=== PATIENT | female | born 1985 | race African-American/Black ===

== ENCOUNTER 2016-06-06 18:18 | Emergency (ER) | payer MEDICAID ==
[2016-06-06 19:46] LABS: BASOPHILS 0.1 % (0-2); EOSINOPHILS 0.4 % (0-7); HEMATOCRIT 34.7 % (36.0-48.0); HEMOGLOBIN 12.3 g/dL (12-16); IMMATURE GRANULOCYTES 0.8 % (0-5); LYMPHOCYTES 30.8 % (15-50); MCH 35.9 pg (26.0-34.0); MCHC 35.4 g/dL (31.0-37.0); MCV 101.2 fL (80.0-100.0); MEAN PLATELET VOLUME 9.4 fL (7.4-10.4); NEUTROPHILS 58.9 % (40-80); PLATELET COUNT 202 10x3/uL (130-400); RBC 3.43 10x6/uL (4.00-5.40); RDW 12.9 % (11.5-14.5)
[2016-06-06 19:51] LABS: APPEARANCE CLEAR (CLEAR); BILIRUBIN NEGATIVE (NEGATIVE); COLOR YELLOW (YELLOW); GLUCOSE NEGATIVE (NEGATIVE); KETONE NEGATIVE (NEGATIVE); LEUKOCYTE ESTERASE NEGATIVE (NEGATIVE); NITRITE NEGATIVE (NEGATIVE); PROTEIN NEGATIVE (NEGATIVE); SPECIFIC GRAVITY 1.015 (1.005-1.020); UROBILINOGEN NORMAL (NORMAL)
[2016-06-06 20:13] LABS: ALBUMIN 3.1 g/dL (3.4-5.0); ALKALINE PHOSPHATASE 46 U/L (46-116); ALT (SGPT) 32 U/L (10-68); BILIRUBIN - TOTAL 0.27 mg/dL (0.2-1.3); CALC OSMOLALITY 276 mosm/kg (275-300); CALCIUM 8.6 mg/dL (8.5-10.1); CARBON DIOXIDE 28.2 mmol/L (21.0-32.0); CHLORIDE - SERUM 105 mmol/L (98-107); CREATININE - SERUM 0.6 mg/dL (0.6-1.3); GLUCOSE 89 mg/dL (74-106); POTASSIUM - SERUM 4.3 mmol/L (3.5-5.1); PROTEIN - SERUM 6.6 g/dL (6.4-8.2); SODIUM 140 mmol/L (136-145); UREA NITROGEN 11 mg/dL (7-18); eGFR NON AFRICAN AMERICAN > 90 mL/min (90-120)
== END 2016-06-06 23:00 | disposition home or self-care (01) ==
LOC: D.ER 18:18
PROVIDERS: Family Medicine
DX: O26.891 Other specified pregnancy related conditions, first trimester (principal); Z3A.12 12 weeks gestation of pregnancy; R10.9 Unspecified abdominal pain

== ENCOUNTER 2016-12-19 05:00 | Inpatient (IN) | payer MEDICAID ==
[2016-12-19] MEDS ORDERED: PREPLUS CA-FE1 EACH (05:47)
[2016-12-19 05:48] VITALS: BP 131/75
[2016-12-19 06:14] LABS: UDS - AMPHET NEGATIVE QUAL (NEGATIVE); UDS - BARB NEGATIVE QUAL (NEGATIVE); UDS - BENZO NEGATIVE QUAL (NEGATIVE); UDS - COCAINE NEGATIVE QUAL (NEGATIVE); UDS - OPIATE NEGATIVE QUAL (NEGATIVE); UDS - PCP NEGATIVE QUAL (NEGATIVE); UDS - THC NEGATIVE QUAL (NEGATIVE)
[2016-12-19 06:27] LABS: HEMATOCRIT 36.1 % (36.0-48.0); HEMOGLOBIN 12.8 g/dL (12-16); MCH 35.3 pg (26.0-34.0); MCHC 35.5 g/dL (31.0-37.0); MCV 99.4 fL (80.0-100.0); MEAN PLATELET VOLUME 10.3 fL (7.4-10.4); RBC 3.63 10x6/uL (4.00-5.40)
[2016-12-19 08:44] LABS: APPEARANCE SLT CLOUDY (CLEAR); BILIRUBIN NEGATIVE (NEGATIVE); COLOR YELLOW (YELLOW); GLUCOSE NEGATIVE (NEGATIVE); KETONE NEGATIVE (NEGATIVE); NITRITE NEGATIVE (NEGATIVE); PROTEIN NEGATIVE (NEGATIVE); UROBILINOGEN NORMAL (NORMAL)
[2016-12-19 08:47] LABS: BACTERIA MANY /hpf (NONE SEEN); MUCUS >1+ /lpf (NONE SEEN); RED CELLS - URINE 0-5 /hpf (0-5); WHITE CELLS - URINE 0-5 /hpf (0-5)
[2016-12-19 19:10] VITALS: BP 128/71
--- NOTE | 2016-12-19 19:10 | NUR ---
PT. AWAKE AND ORIENTED. SKIN WARM AND DRY. FUNDUS FIRM U/2 AND LOCHIA RUBRA MOD. ROM OF MOTION OF BOTH EXTREMITIES. SKIN WARM AND DRY. REPORTS ABD. CRAMPING THAT SHE RATES A 7 OF 10 ON PAIN SCALE. IV OF LR INFUSING AT 125CC/HR. IN LT. FOREARM. BREATH SOUNDS CLEAR AND BOWEL SOUNDS AUDIBLE. REPORTS THAT SHE IS HUNGRY. INFORMED OF NOURISHMENTS THAT ARE AVAILABLE ON UNIT. PT. MAKES REQUEST OF SAME. SANDWICH TRAY , PUDDING AND COLA DRINK SERVED TO PT.
--- NOTE | 2016-12-19 19:25 | NUR ---
PAIN MED. GIVEN ORDERED. PT. CHEERFUL AND TALKING ON PHONE.
--- NOTE | 2016-12-19 19:35 | NUR ---
IV CONVERTED TO SALINE LOCK. NO REDNESS NOR EDEMA AT IV SITE.
--- NOTE | 2016-12-19 20:02 | NUR ---
PT. SITTING UP IN BED FEEDING INFANT. TALKING AND LAUGHING WITH VISITORS AT BEDSIDE. STATES PAIN HAS IMPROVED SINCE PAIN MED AND RATES A 6 OF 10 ON PAIN SCALE. SIDE RAILS UP X 2.
--- NOTE | 2016-12-19 20:40 | NUR ---
EPIDURAL CATH. REMOVED WITH BLACK TIP NOTED. NBN STAFF IN ROOM BATHING INFANT. OLGA PADS AND PANTIES APPLIED AND PT. UP TO VIEW BATH. PT. DENIES ANY NUMBNESS AND HAS STEADY GAIT.
--- NOTE | 2016-12-19 20:50 | NUR ---
TRANSFERRED TO 1273 AMBULATORY. ORIENTED TO ROOM, CALL SYSTEM, AND BED CONTROLS. VOIDED WITHOUT DIFFICULTY. SELF OLGA CARE TAUGHT AND PT. STATES VERBAL UNDERSTANDING. SIDE RAILS UP X 2. FOB IN ROOM WITH PT. PT. DESIRES TO SHOWER. GAIT STEADY AND DENIES ANY DIZZINESS. ENCOURAGED TO TAKE TEPID SHOWER FOR THE FIRST TIME UP. STATES UNDERSTANDING. LINENS PROVIDED.
--- NOTE | 2016-12-19 21:07 | NUR ---
AMBULATORY INTO HALLWAY. GAIT STEADY.
--- NOTE | 2016-12-19 21:25 | NUR ---
BACK TO ROOM FOR WALKING. CHEERFUL.
--- NOTE | 2016-12-19 21:39 | NUR ---
WALKING ABOUT IN ROOM AND BRUSHING TEETH. STATES SHE IS "FEELING LIKE MYSELF AGAIN". RATES PAIN A 4 OF 10 AND STATES SHE "FEELS GOOD". FOB IN ROOM WITH PT. DENIES ANY FURTHER NEEDS.
--- NOTE | 2016-12-19 22:22 | NUR ---
COLA DRINK SERVED TO PT. RATES PAIN A 4 OF 10 ON PAIN SCALE. VITAL SIGNS OBTAINED.
[2016-12-19 22:29] VITALS: BP 128/60
--- NOTE | 2016-12-19 22:46 | NUR ---
PAIN MED GIVEN ORDERED. PT. ON PHONE AND FOB HOLDING INFANT. PT. CHEERFUL AND DENIES ANY FURTHER NEEDS.
--- NOTE | 2016-12-19 23:32 | NUR ---
PT. SITTING UP IN BED HOLDING INFANT AND ATTEMPTING TO FEED. STATES INFANT IS NOT WANTING TO EAT FOR HER. INFORMED WOULD LET NBN STAFF KNOW. SAME DONE. RELATES THAT PAIN IS A 3 OF 10 ON PAIN SCALE.
--- NOTE | 2016-12-20 00:09 | NUR ---
PT. UP TO BATHROOM TO VOID. FOB SITTING IN CHAIR FEEDING INFANT. C/O BACKPAIN AND ABD. CRAMPING THAT SHE RATES A 4 OF 10 ON PAIN SCALE.
--- NOTE | 2016-12-20 01:10 | NUR ---
LYING ON STOMACH WITH EYES CLOSED. RESPIRATIONS REGULAR.
--- NOTE | 2016-12-20 03:19 | NUR ---
LYING ON BACK WITH HOB AT 15 DEGREES. EYES CLOSED AND RESPIRATIONS REGULAR. SIDE RAILS UP X 2.
--- NOTE | 2016-12-20 05:59 | NUR ---
PT. UP TO BATHROOM TO VOID. REPORTS BACK PAIN AND ABD. CRAMPING. PAIN MED GIVEN ORDERED. COLA DRINK SERVED. PT. REQUESTING INFANT TO ROOM.
--- NOTE | 2016-12-20 06:07 | NUR ---
INFANT TO ROOM. ID BAND OF MOTHER AND MATCHED. PT. SITTING UP IN BED WITH HOB ELEVATED 45 DEGREES. CHEERFUL. FOB AWAKE AND ASSISTING MOTHER.
--- NOTE | 2016-12-20 06:10 | NUR ---
INFANT OUT TO MOM PER Silviano CHUA RN IN OPEN CRIB.
[2016-12-20 08:07] LABS: HEMATOCRIT 36.6 % (36.0-48.0); HEMOGLOBIN 12.8 g/dL (12-16); MCH 35.4 pg (26.0-34.0); MCV 101.1 fL (80.0-100.0); MEAN PLATELET VOLUME 9.9 fL (7.4-10.4); RBC 3.62 10x6/uL (4.00-5.40)
[2016-12-20 08:08] LABS: WBC 12.9 10x3/uL (4.8-10.8)
[2016-12-20 08:30] VITALS: BP 114/58
--- NOTE | 2016-12-20 08:30 | NUR ---
ASSESSMENT DONE- VERBAL RESPONSES APPRO TO QUESTIONS. WATKINS AT WILL. UP AND ABOUT IN ROOM. REG BREAKFAST SERVED. ABD SOFT. FUNDUS U1/FIRM. SCANT LOCHIA NOTED ON PAD.
--- NOTE | 2016-12-20 09:28 | NUR ---
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 NO REQUESTS AT THIS TIME.
--- NOTE | 2016-12-20 11:02 | NUR ---
AMBULATING IN HALLWAY. REQUESTING SODA AND PAIN PILL. STATES THAT HAS PAIN IN "MY STOMACH AND MY BACK" RATES PAIN AN 8 ON SCALE OF 0-10. STATES THAT SHE WOULD LIKE THE DEMEROL.
--- NOTE | 2016-12-20 12:28 | OP ---
PATIENT NAME: PAUL MONTERO MEDICAL RECORD: [id number] LOCATION:[id number] ADMISSION DATE:12/19/16 SURGEON: SHE BEEBE MD DATE OF OPERATION: 12/19/2016 DELIVERY NOTE Spontaneous vaginal delivery, a female weighing 6 pounds 6 ounces, 9 and 9 Apgars, no episiotomy, epidural anesthesia. No lacerations. Spontaneous delivery of intact-appearing placenta. Noted to have numerous calcifications. Cord blood drawn for pH. COMPLICATIONS OF DELIVERY: None. TRANSINT:[id number] Voice Confirmation ID: [id number] DOCUMENT ID: [id number] SHE BEEBE MD at 1228 CC: [id number] DICTATION DATE: 12/19/161807 COMMUNICATIONS SUPERVISOR: 12/19/[address] [facility] [address] [place] [address]
--- NOTE | 2016-12-20 12:30 | NUR ---
STATES THAT PAIN IS DOWN TO A 5 OR SO- FAMILY AT BEDSIDE. DENIES NEEDS. UP AND ABOUT IN ROOM AND HALLWAYS.
[2016-12-20 15:00] VITALS: BP 125/60
--- NOTE | 2016-12-20 15:00 | NUR ---
VS DONE. STATES THAT HAVING PAIN IN BACK AND ABD. RATES PAIN A 9-10. REQUESTING SODA. USING CELL PHONE. PT STATES THAT SHE "HAD TO HAVE 2 EPIDURALS YESTERDAY" DISCUSSED TRYING IBUPROFEN -PT AGREES.
--- NOTE | 2016-12-20 16:52 | NUR ---
shower done -linens changed. requesting demerol for pain- med given. pt ambulating about in room.
--- NOTE | 2016-12-20 18:50 | NUR ---
report to pm shift.
[2016-12-20 19:12] VITALS: BP 131/86
--- NOTE | 2016-12-20 19:12 | NUR ---
PT AMBULATING IN ROOM. 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 RESP EVEN AND UNLABORED. LUNGS CLEAR BILATERALLY. BOWEL SOUNDS PRESENT X4. FUNDUS FIRM U/1. LIGHT LOCHIA NOTED TO OLGA PAD. PT RATES PAIN 8/10, HAS ALREADY BEEN MEDICATED. NSY NURSE IN ROOM TO CARE FOR . COLA AND CUP OF ICE PROVIDED PER PT REQUEST. CALL LIGHT IN REACH. PT GOING TO WALK WITH S/O. SAJI MERRILL
--- NOTE | 2016-12-20 20:15 | NUR ---
PT RETURNED TO ROOM. SAJI MERRILL
--- NOTE | 2016-12-20 21:29 | NUR ---
THIS RN TO ROOM TO ADMINISTER PAIN MEDICATION, PT OUT OF ROOM. S/O PRESENT IN ROOM. INFANT RESTING IN CRIB. SAJI MERRILL
--- NOTE | 2016-12-20 21:39 | NUR ---
DEMEROL 100MG ADMINISTERED FOR C/O PAIN 10/26. MILK OF MAG ADMINISTERED ORDERED. PT DENIES NEEDS AT THIS TIME. VISITORS IN ROOM. SAJI MERRILL
--- NOTE | 2016-12-20 23:22 | NUR ---
ROOM CHECK, PT UP IN BATHROOM. DENIES NEEDS AT THIS TIME. SAJI MERRILL
--- NOTE | 2016-12-21 00:55 | NUR ---
PT REQUESTS PAIN MEDICATION. SEE E-MAR FOR MEDICATION ADMINISTRATION. SAJI MERRILL
--- NOTE | 2016-12-21 02:03 | NUR ---
PT AMBULATES OFF UNIT WITH SO. PT IN NO ACUTE DISTRESS. INFANT IN NURSERY FOR BOTTLEFEED.
--- NOTE | 2016-12-21 02:33 | NUR ---
PT CALLS, C/O PAIN, RATES 08/25, REQUESTS MEDICATION. DEMEROL 100MG PROVIDED PO AT THIS TIME. PT DENIES ANY FURTHER NEEDS. BED IN LOW POSITION, SIDE RAILS UP TIMES 2, CALL LIGHT AND PHONE IN REACH. SO REMAINS AT PT BS FOR SUPPORT AND ASSISTANCE. WILL CONT TO MONITOR PT STATUS.
--- NOTE | 2016-12-21 04:11 | NUR ---
ROOM CHECK, PT RESTING ON HER LEFT SIDE. RESP EVEN AND UNLABORED. SAJI MERRILL
--- NOTE | 2016-12-21 06:27 | NUR ---
ROOM CHECK, PT RESTING WITH EYES CLOSED. RESP EVEN AND UNLABORED. SAJI MERRILL
[2016-12-21 07:30] VITALS: BP 117/78
--- NOTE | 2016-12-21 07:30 | NUR ---
ASSUMED CARE OF THIS PATIENT. DRESSED IN REGULAR CLOTHES, AMBULATING IN ROOM. INFANT SLEEPING ON BED. SHIFT ASSESSMENT COMPLETED. ASKED ABOUT WHEN BACK "HURTING" AND CRAMPING WOULD GO AWAY. SAYS IT IS BETTER TODAY AT A 7/10. DISCUSSED POSSIBLE CAUSES OF PAIN AND RELIEF MEASURES INCLUDING STRETCHING, AMBULATION, SHOWER, WARM PACKS AND MOTRIN ANTI-INFLAMMITORY. VERBALIZED UNDERSTANDING. SMILING, TALKATIVE. DESIRES TDAP AND FLU VACCINE PRIOR TO DC HOME. WILL PROVIDE WRITTEN INFORMATION. TO CALL IF ANYTHING IS NEEDED. VERBALIZED UNDERSTANDING. ANTICIPATE DC HOME TODAY.
--- NOTE | 2016-12-21 08:03 | NUR ---
TOOK YEIMI TO ROOM TO OFFER PAIN MEDICATION. CURRENTLY NOT IN ROOM. VISITOR IN ROOM WITH INFANT SAYS SHE WENT WALKING.
--- NOTE | 2016-12-21 09:19 | NUR ---
CALLED TO ROOM SECONDARY TO REQUEST FOR PAIN MEDICATION. DR BEEBE ON L&D AND SAYS PT CAN HAVE MOTRIN, SHOULD NOT NEED DEMEROL. TO ROOM TO GIVE PT MEDICATION. CURRENTLY WAITING FOR PATIENT TO GET OFF PHONE. LAUGHING AND TALKING TO PERSON ON CELL PHONE AT THIS TIME. INFANT IN LAP. NO CURRENT VISITORS. ANTICIPATE DC HOME TODAY.
--- NOTE | 2016-12-21 09:22 | NUR ---
INSTRUCTED PT TO CALL RN WHEN OFF PHONE. SHOOK HEAD YES.
--- NOTE | 2016-12-21 09:46 | NUR ---
MOTRIN 600 MG WAS GIVEN PO FOR RELIEF. AMBULATING IN ROOM. NO DISTRESS NOTED. INFORMED THAT DC ORDERS HAS BEEN RECEIVED. DISCUSSED ROOMING-IN UNTIL INFANT DC'D VERBALIZED UNDERSTANDING. RECEIVED VERBAL AND WRITTEN INFORMATION ON FLU AND TDAP VACCINATION. COMPLETING PAPERWORK AT THIS TIME. NO DISTRESS NOTED. IN ROOM. CURRENTLY NO VISITORS. DECLINED NICODERM PATCH.
[2016-12-21] MEDS ORDERED: IBUPROFEN600 MG PO (09:59)
--- NOTE | 2016-12-21 10:54 | NUR ---
TDAP AND FLU VACCINE WERE GIVEN IM WITHOUT DIFFICULTY. DISCUSSED ROOMING-IN POLICY AND ANTICIPATION OF INFANT DC HOME THIS AFTERNOON AT 48 HOURS. VERBALIZED UNDERSTANING. INFANT IN ROOM. NO CURRENT REQUESTS. RX FOR MOTRIN GIVEN TO PATIENT FOR PICKUP BY FAMILY MEMBER. WILL COMPLETE DISCHARGE TEACHING PRIOR TO DC. TO CALL IF ANYTHING IS NEEDED.
--- NOTE | 2016-12-21 12:40 | NUR ---
SITTING UP IN BED. REGULAR DIET AT BEDSIDE. DENIES NEEDING ANYTHING AT THIS TIME. TO CALL IF ANYTHING IS NEEDED.
--- NOTE | 2016-12-21 14:49 | NUR ---
DC TEACHING COMPLETED TO INCLUDE ROUTINE PP CARE, PP DEPRESSION, MEDICATION ADMINISTRATION, S&S INFECTION, COMMUNITY RESOURCES, CAR SAFETY AND FOLLOW-UP. VERBALIZED UNDERSTANDING. NO SPECIFIC QUESTIONS ASKED AT THIS TIME. DC'D TO ROOMING-IN STATUS UNTIL DC'D.
[2016-12-23 03:09] LABS: RAPID PLASMA REAGIN Non Reactive (Non Reactive)
== END 2016-12-21 14:52 | disposition home or self-care (01) | DRG 775 ==
LOC: D.LD 05:00
PROVIDERS: ADMIT Obstetrics & Gynecology
PROC: 10E0XZZ Delivery of Products of Conception, External Approach (ICD-10-PCS; principal; 2016-12-19)
DX: O99.214 Obesity complicating childbirth (principal); Z3A.40 40 weeks gestation of pregnancy; Z37.0 Single live birth

== ENCOUNTER 2017-12-30 03:17 | Emergency (ER) | payer MEDICAID ==
[~2017-12-30] VITALS: Ht 162.6 cm; Wt 79.5 kg
[~2017-12-30 03:17] MED LIST: IBUPROFEN600 MG PO; PREPLUS CA-FE1 EACH
[2017-12-30 03:49] VITALS: Ht 162.6 cm; Wt 79.5 kg
[2017-12-30] MEDS ORDERED: DICLOFENAC SODI50 MG PO (04:10)
[2017-12-30] MEDS ORDERED: POLYSPORIN OINT15 G1 TOPICAL (04:10)
[2017-12-30 06:14] VITALS: BP 135/84
== END 2017-12-30 06:16 | disposition home or self-care (01) ==
LOC: D.ER 03:17
DX: M54.5 Low back pain (principal); S80.212A Abrasion, left knee, initial encounter; X58.XXXA Exposure to other specified factors, initial encounter; Y93.89 Activity, other specified; Y92.019 Unspecified place in single-family (private) house as the place of occurrence of the external cause; M25.531 Pain in right wrist; F17.200 Nicotine dependence, unspecified, uncomplicated